=== PATIENT | female | born 1990 | race Caucasian/White ===

== ENCOUNTER 2016-05-17 10:30 | Emergency (ER) | payer SELFPAY ==
[~2016-05-17] VITALS: Ht 177.8 cm; Wt 70.8 kg
[~2016-05-17 10:30] MED LIST: NAPROSYN500 MG PO; NOHOMEMEDS
[2016-05-17] MEDS ORDERED: AUGMENTIN875 MG PO (12:06)
[2016-05-17 12:20] VITALS: BP 123/90
== END 2016-05-17 12:23 | disposition home or self-care (01) ==
LOC: RME 10:30 → EME 10:30 → RME 12:23
DX: S61.431A Puncture wound without foreign body of right hand, initial encounter (principal); W54.0XXA Bitten by dog, initial encounter; Y92.009 Unspecified place in unspecified non-institutional (private) residence as the place of occurrence of the external cause
CPT/HCPCS: 73130; 99281; 99284

== ENCOUNTER 2016-08-04 22:35 | Emergency (ER) | payer OTHER ==
[~2016-08-04] VITALS: Ht 177.8 cm; Wt 71.9 kg
[~2016-08-04 22:35] MED LIST changes: +AUGMENTIN875 MG PO
[2016-08-05] MEDS ORDERED: PERCOCET 5/31 TABLET PO (00:28)
[2016-08-05] MEDS ORDERED: MOTRIN800 MG PO (00:28)
[2016-08-05] MEDS ORDERED: AUGMENTIN875 MG PO (00:28)
[2016-08-05 01:13] VITALS: BP 132/67
== END 2016-08-05 01:13 | disposition home or self-care (01) ==
LOC: EXP 22:35 → EME 22:35 → EXP 08-05 01:13
DX: S61.452A Open bite of left hand, initial encounter (principal); S61.552A Open bite of left wrist, initial encounter; S52.502A Unspecified fracture of the lower end of left radius, initial encounter for closed fracture; W54.0XXA Bitten by dog, initial encounter; Z72.0 Tobacco use
CPT/HCPCS: 73110; 73130; 99281; 99284